=== PATIENT | female | born 1945 | race Caucasian/White ===

== ENCOUNTER → 2016-07-26 | Outpatient (CLI) | payer MEDICARE, OTHER ==
[~2016-07-26] MED LIST: ASPI1TAB PO; CALC600T21 PO; FISH5CAP PO; FOLI1TAB2 PO; HYDR12CA PO; ICAPCAP PO; INFL10VL IV; METH2.5TA PO; MULT1TAB9 PO; NIFE30TA66 PO; PRAV40TA2 PO; REST0.05 OU; TYLE1TAB5 PO; ZYRT10CA PO
--- NOTE | 2016-07-26 13:18 | REP ---
Clinical: Presurgical evaluation . Comparison: 10/05/2011 . Technique: PA and lateral. Findings: The mediastinum and cardiac silhouette are normal. The lung garza are clear and without acute consolidation, effusion, or pneumothorax. The skeletal structures are intact and normal. Impression: 1. No acute cardiopulmonary process. Signed by Dante Simpson MD 07/26/2016 01:10 P
[2016-07-26 14:15] LABS: COLLAGEN ADP 128 SECONDS (56-103)
[2016-07-26 14:20] LABS: ALBUMIN 3.5 GM/DL (3.2-5.2); ALBUMIN/GLOBULIN RATIO 1.13 (1.00-1.93); ALKALINE PHOSPHATASE 100 U/L (45-117); ALT/SGPT 25 U/L (12-78); ANION GAP 6 MEQ/L (8-16); AST/SGOT 20 U/L (15-37); BILIRUBIN,TOTAL 0.4 MG/DL (0.2-1.0); BLOOD UREA NITROGEN 14 MG/DL (7-18); CALCIUM LEVEL 9.5 MG/DL (8.8-10.2); CARBON DIOXIDE LEVEL 31 MEQ/L (21-32); CHLORIDE LEVEL 107 MEQ/L (98-107); CREATININE FOR GFR 0.63 MG/DL (0.55-1.02); GLOMERULAR FILTRATION RATE > 60.0 (>39); GLUCOSE, FASTING 87 MG/DL (83-110); POTASSIUM SERUM 4.1 MEQ/L (3.5-5.1); SODIUM LEVEL 144 MEQ/L (136-145); TOTAL PROTEIN 6.6 GM/DL (6.4-8.2)
--- NOTE | 2016-07-27 09:18 | ECGEPIP ---
Stationary ECG Study [facility] Test Date: 2016-07-26 Pat Name: RAFFI ARCINIEGA Department: Room: - Gender: F [employer]: KT : 1945 Requested By: GILDA Napier Order Number: [id number] Reading MD: Trell Dyer Measurements Intervals [place] Rate: 69 P: 32 PA: 179 QRS: 36 QRSD: 106 T: 28 QT: 412 QTc: 442 Interpretive Statements SINUS RHYTHM SEPTAL MYOCARDIAL INFARCTION, OF INDETERMINATE AGE Comparison tracing not on file Electronically Signed On 07-27-2016 9:18:11 EST by Trell Dyer
--- NOTE | 2016-08-04 18:31 | CR ---
DATE OF CONSULTATION: 08/04/2016 CONSULTATION FOR: Dr. Prudencio Tobar Thank you for asking me to see Ms. Ashely Low, a 70-year-old female, in consultation prior to her cataract extractions. As you know, Ms. Low is a 70-year-old female with a past history of inflammatory osteoarthritis, ulcerative colitis, hypertension who reports that she has been in her usual state of good health with no fevers or chills, chest pain, or palpitations. The patient has known hypertension. Denies chest pain, palpitations, syncope, or presyncope. She also has Raynaud's disorder, which is been asymptomatic since being on nifedipine for her hypertension. Patient has history of inflammatory osteoarthritis. She is on Remicade every 8 weeks as well as methotrexate. She reports arthritic symptoms are well controlled, and she follows with Dr. Andrea with labs every 8 weeks. The patient has gained weight over the holiday. She is frustrated by this and trying to get back on track The patient also has ulcerative colitis. This too was controlled by the Remicade. She rarely needs to take anti-diarrhea medications. REVIEW OF SYSTEMS: Otherwise negative. PAST MEDICAL HISTORY 1. Inflammatory osteoarthritis (OA). Follows with Dr. Andrea on autoimmune medications. 2. Osteoarthritic degenerative joint disease (OA DJD). 3. Ulcerative colitis. 4. Raynaud's disorder. 5. Hypertension. 6. Pilonidal cyst. 7. G2, P2/spontaneous vaginal delivery (). 8. Palpitations. 9. Fibrocystic breast disease status post negative biopsy. 10. Atypical chest pain. Normal stress echo 10/11/2016. 11. Left shoulder surgery September 2011. 12. Atypical squamous cells of undetermined significance (ASCUS) with normal Pap July 2016 and April 2015. 13. Hyperlipidemia. MEDICATIONS: - baby aspirin daily - calcium plus D twice a day - folic acid 1 mg daily - hydrochlorothiazide 4.5 mg daily - I-Caps daily - Imodium as needed - methotrexate 2.5 mg five tablets weekly - nifedipine ER 30 mg daily - pravastatin 40 mg daily - Premarin vaginal cream three times a week - Remicade every 8 weeks IV - Restasis as needed - saline nasal spray as needed - Zyrtec 10 mg daily FAMILY HISTORY: Positive for Alzheimer's, coronary artery disease (CAD), diabetes, strokes in her father. Positive for breast cancer, hypertension, heart valve disease, and diabetes in her mother, who in 80s. Her brother had diabetes and heart valve disease as well as testicular cancer. Another brother had CAD with stents in his 60s, hypertension, hyperlipidemia. A sister had atrial fibrillation, hypertension, skin cancer. SOCIAL HISTORY: Former smoker with a one to two-pack history total. Alcohol: Three glasses of wine a week. Drug allergies: Lidocaine has caused palpitations. PHYSICAL EXAMINATION: No acute distress. VITAL SIGNS: Weight 202 with a body mass index (BMI) of 33. Her oxygen saturation is 98% after exertion, blood pressure 140/72. Her heart rate is 80. HEENT: Pupils equally reactive to light. Extraocular movements are intact. Conjunctivae not injected. Sclerae anicteric. Head is normocephalic. Neck is supple. Tympanic membranes normal. Posterior pharynx without inflammation. No cervical lymphadenopathy, jugular venous distention (JVD), or thyromegaly. RESPIRATORY: Clear to auscultation. Resonant to percussion. She has a well-healed scar just above the gluteal fold from previous pilonidal cyst surgery. Breasts exam deferred. CARDIOVASCULAR: A barely audible systolic murmur. ABDOMEN: Soft, nontender. No hepatosplenomegaly. EXTREMITIES: No cyanosis, clubbing, or edema, but she does have arthritic changes, particularly in the distal interphalangeal (DIP) joints. NEUROLOGIC: Alert and oriented with cranial nerves II-XII intact. LABORATORY DATA: From [facility] ([facility]) 07/26/2016: Hemoglobin 12.5, abnormal platelet function studies but normal metabolic profile/liver panel. EKG is unchanged from previous EKG that does show sinus rhythm. Cannot rule out previous anterior septal myocardial infarction ([place]). Rate of 69, axis of 36 degrees. Chest x-ray: No acute cardiopulmonary process. Stress echo 2011 showed no inducible disease. IMPRESSION: Ms. Ashely Low, a very pleasant 70-year-old female with cardiovascular risk factors positive for hypertension, hyperlipidemia, family history, age, and inflammatory disease, has no signs or symptoms indicative of cardiovascular ischemia, and is felt to be at low risk for cardiovascular complications from the proposed surgical intervention, which can be further minimized by the following. RECOMMENDATIONS: 1. Abnormal platelet function studies. Hold aspirin and omega-3. 2. Hypertension. Take nifedipine as usual morning surgery. Hold hydrochlorothiazide. 3. Hyperlipidemia. Take pravastatin as usual evening prior to surgery. 4. Inflammatory polyarthropathy. Hold methotrexate, Remicade, folic acid day of surgery. 5. Obesity. Dietary advice discussed. 6. Raynaud's. Take nifedipine morning of surgery. 7. ASCUS. Recent Pap normal. Consider repeat 2-3 years. Thank you very much for this consultation. Please call with questions or concerns.
== END ==
LOC: M LAB 12:27
PROVIDERS: ATTEND Ophthalmology
DX: Z01.818 Encounter for other preprocedural examination (principal); H25.13 Age-related nuclear cataract, bilateral; I10 Essential (primary) hypertension

== ENCOUNTER → 2016-08-12 | Day surgery (SDC) | payer MEDICARE, OTHER ==
[~2016-08-12] VITALS: Ht 167.6 cm; Wt 91.6 kg
[~2016-08-12] MED LIST changes: +ACETYLCHOLINE OPHTH SOLN 1% 2ML As Ordered ONE; +ACETYLCHOLINE OPHTH SOLN 1% 2ML XX ONE; +BALANCED SALT IRRIGATION SOL 500ML GLASS BOTTLE (FOR OR EYE COMPOUND) IR ONE; +BALANCED SALT IRRIGATION SOLUTION 500ML BAG (FOR OR EYE MACHINE) As Ordered ONE; +CEFUROXIME 1MG/0.1ML INTRACAMERAL INJ As Ordered ONE; +CEFUROXIME 1MG/0.1ML INTRACAMERAL INJ ICAM ONE; +HEALON DUET (HEALON 10MG/ML 0.55ML & HEALON ENDOCOAT 30MG/ML 0.85ML) As Ordered ONE; +HEALON DUET (HEALON 10MG/ML 0.55ML & HEALON ENDOCOAT 30MG/ML 0.85ML) XX ONE; +LABETALOL HCL 100 MG/20 ML VIAL As Ordered ONE; +LIDOCAINE 1% SDV 5 ML VIAL As Ordered ONE; +LIDOCAINE 1% SDV 5 ML VIAL XX ONE; +LIDOCAINE 4% INJ 5 ML AMP As Ordered ONE; +LIDOCAINE 4% INJ 5 ML AMP XX ONE; +MIDAZOLAM INJ 2 MG/2 ML VIAL (J2250) As Ordered ONE; +OFLOXACIN 0.3 % (OCUFLOX) OPTH SOL 5ML OS ONE; +ONDANSETRON 4MG/2ML VIAL (J2405) As Ordered ONE; +PHENYLEPHRINE 2.5% OPHTH SOL 2ML OS ONE; +POVIDONE-IODINE 5% OPHTH PREP SOL 30ML As Ordered ONE; +PROPARACAINE 0.5% OPHTH SOL 15ML OS ONE; +TOBRADEX OPHTH OINT 3.5 GM As Ordered ONE; +TOBRADEX OPHTH OINT 3.5 GM XX ONE; +TROPICAMIDE 1% OPHTH SOLN 2 ML OS ONE; +fentaNYL 100 MCG/2 ML INJECTION (J3010) As Ordered ONE
[2016-08-12 11:15] VITALS: BP 146/65
--- NOTE | 2016-08-13 11:24 | RO ---
DATE OF PROCEDURE: 08/12/2016 PREOPERATIVE DIAGNOSIS: Visually significant nuclear sclerotic cataract left eye. POSTOPERATIVE DIAGNOSIS: Visually significant nuclear sclerotic cataract left eye. PROCEDURE: Cataract extraction with use of phacoemulsification and placement of intraocular lens ZCB00, 21.5 diopter, left eye. SURGEON: Prudencio Tobar DO [employer]: ANESTHESIA: Local with monitored anesthesia care (MAC). COMPLICATIONS: None. POSTOPERATIVE CONDITION: Stable. INDICATION FOR SURGERY: Blurred vision left eye affecting patient's activities of daily living. DESCRIPTION OF PROCEDURE: The patient was seen in the preoperative area and properly identified. The correct operative eye was identified and marked. Attention was turned to that eye. The patient received topical antibiotics in the preoperative area. The patient then received topical dilating drops consisting of tropicamide and phenylephrine. The patient was then transferred to the operating room. The correct side was reidentified. The patient received topical anesthetics and antibiotics on the surface of the eye. The eye was prepped and draped in a sterile fashion. The upper and lower eyelids were isolated with Tegaderm tape, and the lids were held open with an adjustable speculum. Using a sideport blade, a paracentesis incision was made. Intraocular preservative-free lidocaine was then injected into the anterior chamber. Viscoelastic was then injected into the anterior chamber through the paracentesis. Using a 2.65 mm sharp-tipped keratome, the anterior chamber was entered via a temporal clear corneal incision. A continuous curvilinear capsulorrhexis was created with the aid of a 26-gauge cystotome and Utrata forceps. Hydrodissection was performed with balanced salt solution (BSS) on a blunt cannula until the nucleus was freely mobile. The crystalline lens was phacoemulsified and aspirated. Additional cohesive viscoelastic was placed into the capsular bag to deepen it. A ZCB00, 21.5 diopter lens was placed into the capsular bag and confirmed by visualizing the continuous curvilinear capsulorrhexis. Additional irrigation and aspiration was used to remove cortical material and remaining viscoelastic. The clear corneal incision was hydrated with BSS on a blunt cannula. The lens was well positioned. The incisions were then tested for leaks and found to be negative. The eye was then palpated for appropriate pressure and adjusted accordingly with BSS. The eyelid speculum was then carefully removed. Tobradex ointment was placed in the eye. An eye patch and shield were then secured over the eye. The patient tolerated the procedure well and was discharged to the recovery unit in a stable condition. ANA
== END | disposition home or self-care (01) ==
LOC: M SDC 07:47
PROVIDERS: ATTEND Ophthalmology
DX: H25.12 Age-related nuclear cataract, left eye (principal); I10 Essential (primary) hypertension; E78.5 Hyperlipidemia, unspecified; K52.9 Noninfective gastroenteritis and colitis, unspecified; M06.9 Rheumatoid arthritis, unspecified; E66.9 Obesity, unspecified; Z88.8 Allergy status to other drugs, medicaments and biological substances; Z79.899 Other long term (current) drug therapy; Z79.82 Long term (current) use of aspirin; Z78.0 Asymptomatic menopausal state; Z98.51 Tubal ligation status; Z87.891 Personal history of nicotine dependence
CPT/HCPCS: 36415; 66984; 85576; J2250; J2405; J3010; V2632

== ENCOUNTER → 2016-09-02 | Day surgery (SDC) | payer MEDICARE, OTHER ==
[~2016-09-02] VITALS: Ht 167.6 cm; Wt 92.0 kg
[~2016-09-02] MED LIST changes: -BALANCED SALT IRRIGATION SOL 500ML GLASS BOTTLE (FOR OR EYE COMPOUND) IR ONE; -LABETALOL HCL 100 MG/20 ML VIAL As Ordered ONE; +LIDOCAINE 0.75%/EPINEPHRINE 0.025% IN BSS 1ML SYR INTRACAMERAL (OR ONLY) As Ordered ONE; -LIDOCAINE 1% SDV 5 ML VIAL XX ONE; +OFLOXACIN 0.3 % (OCUFLOX) OPTH SOL 5ML OD ONE; -OFLOXACIN 0.3 % (OCUFLOX) OPTH SOL 5ML OS ONE; -ONDANSETRON 4MG/2ML VIAL (J2405) As Ordered ONE; +PHENYLEPHRINE 2.5% OPHTH SOL 2ML OD ONE; -PHENYLEPHRINE 2.5% OPHTH SOL 2ML OS ONE; +PROPARACAINE 0.5% OPHTH SOL 15ML OD ONE; -PROPARACAINE 0.5% OPHTH SOL 15ML OS ONE; +TOBRAMYCIN INJ 80 MG/2 ML VIAL (J3260) As Ordered ONE; +TROPICAMIDE 1% OPHTH SOLN 2 ML OD ONE; -TROPICAMIDE 1% OPHTH SOLN 2 ML OS ONE
[2016-09-02] MEDS: D5W/0.2% SODIUM CHLORIDE 250 ML IV SCH ×2 (08:30→09:21)
[2016-09-02 10:00] VITALS: BP 187/78
--- NOTE | 2016-09-02 21:45 | RO ---
DATE OF PROCEDURE: 09/02/2016 PREOPERATIVE DIAGNOSIS: Visually significant nuclear sclerotic cataract right eye. POSTOPERATIVE DIAGNOSIS: Visually significant nuclear sclerotic cataract right eye. PROCEDURE: Cataract extraction with use of phacoemulsification and placement of intraocular lens ZCB00 22.0 diopters, right eye. SURGEON: Prudencio Tobar DO ALIGNMENT SPECIALIST: ANESTHESIA: Local with monitored anesthesia care (MAC). COMPLICATIONS: None. POSTOPERATIVE CONDITION: Stable. INDICATION FOR SURGERY: Blurred vision right eye affecting patient's activities of daily living. DESCRIPTION OF PROCEDURE: The patient was seen in the preoperative area and properly identified. The correct operative eye was identified and marked. Attention was turned to that eye. The patient received topical antibiotics in the preoperative area. The patient then received topical dilating drops consisting of tropicamide and phenylephrine. The patient was then transferred to the operating room. The correct side was reidentified. The patient received topical anesthetics and antibiotics on the surface of the eye. The eye was prepped and draped in a sterile fashion. The upper and lower eyelids were isolated with Tegaderm tape, and the lids were held open with an adjustable speculum. Using a sideport blade, a paracentesis incision was made. Intraocular preservative-free lidocaine was then injected into the anterior chamber. Viscoelastic was then injected into the anterior chamber through the paracentesis. Using a 2.65 mm sharp-tipped keratome, the anterior chamber was entered via a temporal clear corneal incision. A continuous curvilinear capsulorrhexis was created with the aid of a 26-gauge cystotome and Utrata forceps. Hydrodissection was performed with balanced salt solution (BSS) on a blunt cannula until the nucleus was freely mobile. The crystalline lens was phacoemulsified and aspirated. Additional cohesive viscoelastic was placed into the capsular bag to deepen it. A ZCB00 22.0 diopter lens was placed into the capsular bag and confirmed by visualizing the continuous curvilinear capsulorrhexis. Additional irrigation and aspiration was used to remove cortical material and remaining viscoelastic. The clear corneal incision was hydrated with BSS on a blunt cannula. The lens was well positioned. The incisions were then tested for leaks and found to be negative. The eye was then palpated for appropriate pressure and adjusted accordingly with BSS. Several drops of antibiotics and Iopidine were placed in the eye. The eyelid speculum was then carefully removed. Maxitrol ointment was placed in the eye. An eye patch and shield were then secured over the eye. The patient tolerated the procedure well and was discharged to the recovery unit in a stable condition. ANA
== END | disposition home or self-care (01) ==
LOC: M SDC 07:15
PROVIDERS: ATTEND Ophthalmology
DX: H25.11 Age-related nuclear cataract, right eye (principal); I10 Essential (primary) hypertension; E78.00 Pure hypercholesterolemia, unspecified; K52.9 Noninfective gastroenteritis and colitis, unspecified; M06.9 Rheumatoid arthritis, unspecified; Z88.0 Allergy status to penicillin; Z88.2 Allergy status to sulfonamides; Z88.8 Allergy status to other drugs, medicaments and biological substances; Z79.899 Other long term (current) drug therapy; Z79.82 Long term (current) use of aspirin; Z92.21 Personal history of antineoplastic chemotherapy; Z78.0 Asymptomatic menopausal state; Z98.51 Tubal ligation status; Z87.891 Personal history of nicotine dependence
CPT/HCPCS: 66984; J2250; J3010; V2632

== ENCOUNTER 2017-03-30 06:40 | Outpatient (CLI) | payer MEDICARE, OTHER ==
[~2017-03-30] VITALS: Ht 167.6 cm; Wt 92.5 kg
[~2017-03-30 06:40] MED LIST changes: -ACETYLCHOLINE OPHTH SOLN 1% 2ML As Ordered ONE; -ACETYLCHOLINE OPHTH SOLN 1% 2ML XX ONE; -BALANCED SALT IRRIGATION SOLUTION 500ML BAG (FOR OR EYE MACHINE) As Ordered ONE; -CALC600T21 PO; +CALC600T60 PO; -CEFUROXIME 1MG/0.1ML INTRACAMERAL INJ As Ordered ONE; -CEFUROXIME 1MG/0.1ML INTRACAMERAL INJ ICAM ONE; -FOLI1TAB2 PO; +FOLI1TAB4 PO; -HEALON DUET (HEALON 10MG/ML 0.55ML & HEALON ENDOCOAT 30MG/ML 0.85ML) As Ordered ONE; -HEALON DUET (HEALON 10MG/ML 0.55ML & HEALON ENDOCOAT 30MG/ML 0.85ML) XX ONE; -LIDOCAINE 0.75%/EPINEPHRINE 0.025% IN BSS 1ML SYR INTRACAMERAL (OR ONLY) As Ordered ONE; -LIDOCAINE 1% SDV 5 ML VIAL As Ordered ONE; -LIDOCAINE 4% INJ 5 ML AMP As Ordered ONE; -LIDOCAINE 4% INJ 5 ML AMP XX ONE; -MIDAZOLAM INJ 2 MG/2 ML VIAL (J2250) As Ordered ONE; -OFLOXACIN 0.3 % (OCUFLOX) OPTH SOL 5ML OD ONE; -PHENYLEPHRINE 2.5% OPHTH SOL 2ML OD ONE; -POVIDONE-IODINE 5% OPHTH PREP SOL 30ML As Ordered ONE; -PROPARACAINE 0.5% OPHTH SOL 15ML OD ONE; -TOBRADEX OPHTH OINT 3.5 GM As Ordered ONE; -TOBRADEX OPHTH OINT 3.5 GM XX ONE; -TOBRAMYCIN INJ 80 MG/2 ML VIAL (J3260) As Ordered ONE; -TROPICAMIDE 1% OPHTH SOLN 2 ML OD ONE; -fentaNYL 100 MCG/2 ML INJECTION (J3010) As Ordered ONE
[2017-03-30] MEDS ORDERED: NS 1,000 ML IV ONE (07:45)
[2017-03-30] MEDS ORDERED: LIDOCAINE 2% INJ 100 MG/5 ML SDV (FOR ANES.) As Ordered ONE (07:46)
[2017-03-30] MEDS ORDERED: PROPOFOL 200 MG/20 ML VIAL As Ordered ONE ×2 (07:46→08:06)
--- NOTE | 2017-03-30 08:11 | ROOR ---
Patient Name: Ashely Low Procedure Date: 03/30/2017 7:38 AM Date of : 1945 Age: 71 Room: [facility] Gender: Female Note Status: Finalized Procedure: Total Colonoscopy to Cecum + Biopsies Indications: High risk colon cancer surveillance: Ulcerative colitis, Last colonoscopy: 2012 Providers: Gus Tobar MD Referring MD: Melina VALENTINE MD Requesting Provider: Medicines: Monitored Anesthesia Care Complications: No immediate complications. Procedure: Pre-Anesthesia Assessment: - The heart rate, respiratory rate, oxygen saturations, blood pressure, adequacy of pulmonary ventilation, and response to care were monitored throughout the procedure. The Colonoscope was introduced through the anus and advanced to the cecum, identified by appendiceal orifice and ileocecal valve. The colonoscopy was performed without difficulty. The patient tolerated the procedure well. The quality of the bowel preparation was excellent. Findings: The perianal and digital rectal examinations were normal. Non-bleeding internal hemorrhoids were found during retroflexion. The hemorrhoids were small and Grade I (internal hemorrhoids that do not prolapse). Scattered small-mouthed diverticula were found in the recto-sigmoid colon, sigmoid colon and descending colon. The exam was otherwise without abnormality on direct and retroflexion views. Background biopsies were taken for histology with a cold forceps from the ascending colon, transverse colon, descending colon and rectosigmoid colon. These biopsy specimens were sent to Pathology. The exam was otherwise without abnormality. Impression: - Non-bleeding internal hemorrhoids. - Diverticulosis in the recto-sigmoid colon, in the sigmoid colon and in the descending colon. - The examination was otherwise normal on direct and retroflexion views. - The examination was otherwise normal. - Background biopsies were taken from the ascending colon, transverse colon, descending colon and rectosigmoid colon. - The exam was otherwise normal to the cecum. Recommendation: - The patient will be observed post-procedure, until all discharge criteria are met. - Discharge patient to home. - Continue present medications. - Await pathology results. - Telephone GI clinic for pathology results in 1 week. - Return to referring physician. - Repeat colonoscopy for symptoms only. - Continue present medications. - The findings and recommendations were discussed with the patient's family. Gus Tobar MD Gus Tobar MD 03/30/2017 8:10:51 AM This report has been signed electronically. Number of Addenda: 0 Note Initiated On: 03/30/2017 7:38 AM Estimated Blood Loss: Estimated blood loss: none.
[2017-03-30 08:35] VITALS: BP 182/97
== END 2017-03-30 08:46 | disposition home or self-care (01) ==
LOC: M OPP 06:40
PROVIDERS: ATTEND Internal Medicine Gastroenterology
DX: Z12.11 Encounter for screening for malignant neoplasm of colon (principal); K51.90 Ulcerative colitis, unspecified, without complications; K64.0 First degree hemorrhoids; K57.30 Diverticulosis of large intestine without perforation or abscess without bleeding; I10 Essential (primary) hypertension; E78.00 Pure hypercholesterolemia, unspecified; M19.90 Unspecified osteoarthritis, unspecified site; Z78.0 Asymptomatic menopausal state; Z79.899 Other long term (current) drug therapy; Z79.82 Long term (current) use of aspirin; Z88.8 Allergy status to other drugs, medicaments and biological substances

== ENCOUNTER → 2017-07-05 | Outpatient (CLI) | payer MEDICARE, OTHER ==
--- NOTE | 2017-07-09 08:48 | RADONC ---
RADIATION ONCOLOGY CONSULTATION NOTE DATE: 07/05/2017 CHART NUMBER: [id number]. DIAGNOSIS #1: Left breast cancer. STAGE: IIA, T2N0M0. DIAGNOSIS #2: Right breast cancer. STAGE: IA, T1N0M0. ECOG PERFORMANCE STATUS: Zero. CONSULTATION NOTE: Ms. Low is a very pleasant, 71-year-old white female with the diagnosis of a stage IIA, T2N0M0, moderately differentiated invasive ductal carcinoma of the left breast as well as a stage IA, [id number], moderately differentiated infiltrating ductal carcinoma of the right breast who is presenting to us today status post bilateral lumpectomies and sentinel lymph node biopsies for consideration of postoperative radiation therapy for conservative breast management. HISTORY OF PRESENT ILLNESS: The patient was in her usual state of health until routine mammogram done 05/04/2017 revealed a suspicious lesion in her right breast. Ultrasound confirmed a 1.3 cm mass in the 9 o'clock position. She underwent core biopsy and infiltrating ductal carcinoma was found. The tumor was estrogen receptor and progesterone receptor positive and HER2/janelle negative. An MRI was done on 05/13/2017 and confirmed the right breast mass but also revealed a left breast mass. Ultrasound revealed a 0.5 cm mass at the 2 o'clock position in the left breast. This was biopsied and revealed to be infiltrating ductal carcinoma with lobular features. This tumor was also estrogen receptor and progesterone receptor positive and HER2/janelle negative. On 06/15/2017, the patient underwent a left and right lumpectomies as well as sentinel lymph node biopsies. Pathology revealed on the left side a 2.5 cm moderately differentiated invasive ductal carcinoma with extensive lymph vascular invasion. The margins were initially positive, but subsequent re-excision of the margins revealed all negative margins. The tumor was estrogen receptor and progesterone receptor positive and HER2/janelle negative. The patient also underwent sentinel lymph node sampling with one lymph node negative for malignancy. In addition, the right breast underwent lumpectomy and pathology revealed a 1.2 cm moderately differentiated invasive ductal carcinoma. A right sentinel lymph node was sampled and was negative for malignancy as well. This tumor was also estrogen receptor and progesterone receptor positive and HER2/janelle negative. The patient has done well since surgery and is now presenting to us for discussion of postoperative radiation therapy as a therapeutic option. PAST MEDICAL HISTORY: The patient's past medical history is positive for heart palpitations. She also has a history of arthritis and hypertension. She has had rheumatoid arthritis for years and has been taking methotrexate and Remicade. She also had a tubal ligation in the past as well as rotator cuff surgery and cataract surgery. ALLERGIES: The patient is allergic to EPINEPHRINE. SOCIAL HISTORY: The patient quit smoking in 1966. She had smoked less than half a pack of cigarettes per day for 5 years. She drinks alcohol several times per week. FAMILY HISTORY: The patient's family history has a mother with breast cancer and a brother with testicular cancer. REVIEW OF SYSTEMS: The patient's review of systems is positive for colitis. Her review of systems is otherwise noncontributory. Denies nausea, vomiting, fevers, chills, night sweats, diplopia, headaches, anxiety or depression, anorexia, weight loss, visual disturbances, chest pain, urinary or bowel difficulties, bone pain, or neurological problems. PHYSICAL EXAMINATION: The patient is a well-developed, well-nourished, 71-year-old female, in no acute distress. HEENT exam is normocephalic, atraumatic. Extraocular movements are intact. There is no palpable cervical, supraclavicular, infraclavicular, axillary, or inguinal lymphadenopathy present. Lungs are clear to auscultation and percussion. Heart has a regular rate and rhythm. Abdomen is benign with no hepatosplenomegaly, masses, or tenderness. Breast examination reveals no masses or discharge bilaterally. Skeletal examination reveals no tenderness to pressure or percussion of the bony skeleton. Extremities reveal no clubbing, cyanosis, or edema. Neurologic exam is grossly intact, as is the remainder of the physical examination. ASSESSMENT: Clearly the patient is a candidate for external beam radiation therapy and I have so informed her. I have discussed with the patient in detail the potential benefits as well as possible acute and chronic sequelae of external beam radiation therapy. We have discussed logistics of treatment planning, simulation and subsequent fractionated daily radiation treatments. I have scheduled the patient for simulation of her bilateral breasts. The patient is scheduled see medical oncology to discuss systemic therapy on 07/12/2017. We are planning on initiating treatment planning following that appointment. Clearly should she be deemed a candidate for systemic therapy, systemic therapy would be delivered first and radiation would follow. We await the expert opinion of our excellent medical oncologists. Thank you once again for allowing us to participate in the care of this very pleasant woman. If I could be of any further assistance or provide you with any information, please feel free to contact me anytime. As always, warm regards. cc: Zulma Cloud MD,PhD MD Melina De La O MD
== END ==
LOC: M ONCR 08:59
PROVIDERS: ATTEND Radiology Radiation Oncology
DX: C50.911 Malignant neoplasm of unspecified site of right female breast (principal); C50.912 Malignant neoplasm of unspecified site of left female breast

== ENCOUNTER 2017-08-09 14:41 | Outpatient (RCR) | payer MEDICARE, OTHER | END 2017-08-17 | LOC: M ONCR 14:41 | DX: C50.812 Malignant neoplasm of overlapping sites of left female breast (principal); C50.811 Malignant neoplasm of overlapping sites of right female breast | CPT/HCPCS: 77334 ==

== ENCOUNTER → 2017-08-09 | Outpatient (CLI) | payer MEDICARE, OTHER | LOC: M RAD 10:31 | DX: C50.919 Malignant neoplasm of unspecified site of unspecified female breast (principal) ==

== ENCOUNTER 2017-08-18 09:50 | Outpatient (RCR) | payer MEDICARE, OTHER | END 2017-09-14 | LOC: M ONCR 09:50 | DX: C50.812 Malignant neoplasm of overlapping sites of left female breast (principal); C50.811 Malignant neoplasm of overlapping sites of right female breast | CPT/HCPCS: 77300 ==

== ENCOUNTER 2017-09-15 11:10 | Outpatient (RCR) | payer MEDICARE, OTHER | END 2017-10-15 | LOC: M ONCR 11:10 | DX: C50.811 Malignant neoplasm of overlapping sites of right female breast (principal); C50.812 Malignant neoplasm of overlapping sites of left female breast | CPT/HCPCS: 77300 ==

== ENCOUNTER → 2017-11-16 | Outpatient (CLI) | payer MEDICARE, OTHER | LOC: M ONCR 14:09 | DX: C50.812 Malignant neoplasm of overlapping sites of left female breast (principal); C50.811 Malignant neoplasm of overlapping sites of right female breast | CPT/HCPCS: G0463 ==

== ENCOUNTER → 2018-05-17 | Outpatient (CLI) | payer MEDICARE, OTHER | LOC: M ONCR 13:51 | DX: C50.911 Malignant neoplasm of unspecified site of right female breast (principal) | CPT/HCPCS: G0463 ==

== ENCOUNTER → 2018-11-08 | Outpatient (CLI) | payer MEDICARE, OTHER ==
[~2018-11-08] MED LIST changes: -ASPI1TAB PO; +ASPI81TA26 PO; +CHLO125TA PO; +EXEM25TA PO; +FOLI1TAB11 PO; -FOLI1TAB4 PO; +LETR2.5T2 PO; +METH2.5T48 PO; -METH2.5TA PO; +NIFE30TA50 PO; -NIFE30TA66 PO; +SILV40CR EXT; +TARTCAP PO
--- NOTE | 2018-11-14 13:15 | RADONC ---
RADIATION ONCOLOGY FOLLOWUP NOTE DATE: 11/08/2018 CHART #: [id number] DIAGNOSIS: Left breast cancer. STAGE: II A, T2N0M0. DIAGNOSIS: Right breast cancer. STAGE: I A, Q1wT9X1. ECOG PERFORMANCE STATUS: 0. FOLLOWUP NOTE: Ms. Low is a very pleasant 73-year-old white female with the diagnosis of a stage II A, T2N0M0, moderately differentiated invasive ductal carcinoma of the left breast as well as a stage I A, Q6kF3C0 1 cm, moderately differentiated infiltrating ductal carcinoma of the right breast who is presenting to us today for routine followup visit approximately 1 year post completion of external beam radiation therapy. REVIEW OF SYSTEMS: The patient presents today reporting that she is doing quite well with no complaints at this time related to her radiation therapy or disease. She has no significant breast or bone pain system occasional tenderness. Denies nausea, vomiting, fevers, chills, night sweats, diplopia, headaches, anxiety or depression, anorexia, weight loss, visual disturbances, chest pain, urinary or bowel difficulties, bone pain, or neurological problems. PHYSICAL EXAMINATION: The patient is a well-developed, well-nourished, 73-year-old female in no acute distress. HEENT exam is normocephalic, atraumatic. Extraocular movements are intact. There is no palpable cervical, supraclavicular, infraclavicular, axillary, or inguinal lymphadenopathy present. Lungs are clear to auscultation and percussion. Heart has a regular rate and rhythm. Abdomen is benign with no hepatosplenomegaly, masses, or tenderness. Breast examination reveals no masses or discharge bilaterally. Skeletal examination reveals no tenderness to pressure or percussion of the bony skeleton. Extremities reveal no clubbing, cyanosis, or edema. Neurologic exam is grossly intact, as is the remainder of the physical examination. ASSESSMENT: The patient is clinically KEKE at this time and is being discharged from our followup except on a p.r.n. basis. She will continue her close followup with her other physicians in the meantime. cc: MD Queenie Gates MD Julie LaPointe, MD
== END ==
LOC: M ONCR 13:57
PROVIDERS: ATTEND Radiology Radiation Oncology
DX: Z85.3 Personal history of malignant neoplasm of breast (principal); Z92.3 Personal history of irradiation

== ENCOUNTER → 2019-03-27 | Outpatient (REF) | payer MEDICARE, OTHER ==
[~2019-03-27] MED LIST changes: +ALLE10TA62 PO; +CELE1CAP4 PO; +ICAPCAP2 PO; +KP F1200 PO
[2019-03-28 12:56] LABS: PERCENT SATURATION 11.4 % (13.2-45.0); URIC ACID 6.6 MG/DL (2.6-6.0)
== END ==
LOC: M LAB REF 12:29
PROVIDERS: ATTEND Internal Medicine
DX: M25.50 Pain in unspecified joint (principal)

== ENCOUNTER 2019-06-04 08:10 | Day surgery (SDC) | payer MEDICARE, OTHER ==
[~2019-06-04] VITALS: Ht 165.1 cm; Wt 88.0 kg
[~2019-06-04 08:10] MED LIST changes: +ACET25TA12 PO; +DICL1GEL3 TOP; +FERR325T81 PO; +NS 1,000 ML IV ONE; +OMEP40CA97 PO; +PROL60SO SC
[2019-06-04] MEDS ORDERED: PROPOFOL 200 MG/20 ML VIAL As Ordered ONE ×3 (09:16→09:40)
[2019-06-04] MEDS ORDERED: LIDOCAINE 2% INJ 100 MG/5 ML SDV (FOR ANES.) As Ordered ONE (09:17)
--- NOTE | 2019-06-04 09:30 | ROOR ---
Patient Name: Ashely Low Procedure Date: 06/04/2019 9:14 AM Date of : 1945 Age: 73 Room: [facility] Gender: Female Note Status: Finalized Procedure: Upper Endoscopy + Biopsies Indications: Iron deficiency anemia Providers: Gus Tobar MD Referring MD: Melina VALENTINE MD Requesting Provider: Medicines: Monitored Anesthesia Care Complications: No immediate complications. Procedure: Pre-Anesthesia Assessment: - The heart rate, respiratory rate, oxygen saturations, blood pressure, adequacy of pulmonary ventilation, and response to care were monitored throughout the procedure. The Endoscope was introduced through the mouth, and advanced to the second part of duodenum. The upper GI endoscopy was accomplished without difficulty. The patient tolerated the procedure well. Findings: The Z-line was regular and was found 40 cm from the incisors. Multiple biopsies were obtained with cold forceps for evaluation to rule out Smith's Esophagus randomly at the gastroesophageal junction. A small hiatal hernia was present. Biopsies were taken with a cold forceps in the gastric antrum for Helicobacter pylori testing. The exam of the duodenum was otherwise normal. Multiple small sessile polyps with no stigmata of recent bleeding were found on the greater curvature of the stomach. Impression: - Z-line regular, 40 cm from the incisors. - Small hiatal hernia. - Multiple gastric polyps. - Multiple biopsies were obtained at the gastroesophageal junction. - Biopsies were taken with a cold forceps for Helicobacter pylori testing. - The examination was otherwise normal. Recommendation: - Patient has a contact number available for emergencies. The signs and symptoms of potential delayed complications were discussed with the patient. Return to normal activities tomorrow. Written discharge instructions were provided to the patient. - High fiber diet. - Discharge patient to home. - Continue present medications. - Await pathology results. - Telephone GI clinic for pathology results in 1 week. - Return to referring physician. - The findings and recommendations were discussed with the patient's family. Gus Tobar MD Gus Tobar MD 06/04/2019 9:29:35 AM Electronically signed by Gus Tobar MD Number of Addenda: 0 Note Initiated On: 06/04/2019 9:14 AM Estimated Blood Loss: Estimated blood loss: none.
--- NOTE | 2019-06-04 09:49 | ROOR ---
Patient Name: Ashely Low Procedure Date: 06/04/2019 9:14 AM Date of : 1945 Age: 73 Room: [facility] Gender: Female Note Status: Finalized Procedure: Total Colonoscopy to cecum + Bx. Indications: High risk colon cancer surveillance: Ulcerative colitis Providers: Gus Tobar MD Referring MD: Melina VALENTINE MD Requesting Provider: Medicines: Monitored Anesthesia Care Complications: No immediate complications. Procedure: Pre-Anesthesia Assessment: - The heart rate, respiratory rate, oxygen saturations, blood pressure, adequacy of pulmonary ventilation, and response to care were monitored throughout the procedure. The Colonoscope was introduced through the anus and advanced to the cecum, identified by appendiceal orifice and ileocecal valve. The colonoscopy was performed without difficulty. The patient tolerated the procedure well. The quality of the bowel preparation was excellent. Findings: The perianal and digital rectal examinations were normal. Non-bleeding internal hemorrhoids were found during retroflexion. The hemorrhoids were small and Grade I (internal hemorrhoids that do not prolapse). Multiple small and large-mouthed diverticula were found in the recto-sigmoid colon, sigmoid colon and descending colon. Background biopsies were taken for histology with a cold forceps from the ascending colon, transverse colon, descending colon and rectosigmoid colon. These biopsy specimens were sent to Pathology. The exam was otherwise without abnormality on direct and retroflexion views. Impression: - Non-bleeding internal hemorrhoids. - Diverticulosis in the recto-sigmoid colon, in the sigmoid colon and in the descending colon. - The examination was otherwise normal on direct and retroflexion views. - Background biopsies were taken from the ascending colon, transverse colon, descending colon and rectosigmoid colon. - The exam was otherwise normal to the cecum. Recommendation: - Patient has a contact number available for emergencies. The signs and symptoms of potential delayed complications were discussed with the patient. Return to normal activities tomorrow. Written discharge instructions were provided to the patient. - High fiber diet. - Discharge patient to home. - Continue present medications. - Await pathology results. - Telephone GI clinic for pathology results in 1 week. - Repeat colonoscopy for symptoms only. - Return to referring physician. - The findings and recommendations were discussed with the patient's family. Gus Tobar MD Gus Tobar MD 06/04/2019 9:48:43 AM Electronically signed by Gus Tobar MD Number of Addenda: 0 Note Initiated On: 06/04/2019 9:14 AM Estimated Blood Loss: Estimated blood loss: none.
[2019-06-04 10:10] VITALS: BP 139/64
== END 2019-06-04 10:28 | disposition home or self-care (01) ==
LOC: M OPP 08:10
PROVIDERS: ATTEND Internal Medicine Gastroenterology
DX: K64.0 First degree hemorrhoids (principal); K57.30 Diverticulosis of large intestine without perforation or abscess without bleeding; K51.90 Ulcerative colitis, unspecified, without complications; K31.7 Polyp of stomach and duodenum; K44.9 Diaphragmatic hernia without obstruction or gangrene; D50.9 Iron deficiency anemia, unspecified; Z09 Encounter for follow-up examination after completed treatment for conditions other than malignant neoplasm; Z79.82 Long term (current) use of aspirin; Z79.899 Other long term (current) drug therapy; Z88.4 Allergy status to anesthetic agent

== ENCOUNTER → 2019-06-06 | Outpatient (REF) | payer MEDICARE, OTHER ==
[~2019-06-06] MED LIST changes: -NS 1,000 ML IV ONE
[2019-06-06 17:05] LABS: PERCENT SATURATION 10.9 % (13.2-45.0)
== END ==
LOC: M LAB REF 16:24
PROVIDERS: ATTEND Internal Medicine
DX: D50.9 Iron deficiency anemia, unspecified (principal)

== ENCOUNTER → 2019-06-08 | Outpatient (REF) | payer MEDICARE, OTHER | LOC: M LAB REF 16:18 | PROVIDERS: ATTEND Internal Medicine | DX: D50.9 Iron deficiency anemia, unspecified (principal) ==

== ENCOUNTER → 2019-08-01 | Outpatient (CLI) | payer MEDICARE, OTHER ==
[~2019-08-01] MED LIST changes: +GASTROGRAFIN SOLUTION 30ML (Q9963) As Ordered ONE; +ISOVUE-370 76% 100ML VIAL (Q9967) As Ordered ONE
--- NOTE | 2019-08-01 19:14 | REP ---
CT chest with IV contrast: History: Weight loss and sweats. Evaluate for lymphadenopathy. History of left breast cancer. New anemia. Comparison is made with CT treatment planning images dated August 09, 2017. CT contrast dose: 100 ml of intravenous Isovue [address] findings: Preliminary digital service worker helper radiograph is unremarkable. There is no evidence of pleural or pericardial effusion. No mediastinal mass is seen. No hilar adenopathy is seen. There are two very small normal-sized lymph nodes in the aorticopulmonary window region of the mediastinum. There is no evidence of pulmonary edema. Vascular calcification is seen in the aorta. There are postoperative changes with clips in the right breast. Lung window settings show no evidence of infiltrate. No pulmonary nodule or mass lesion is observed. No bony lesion is seen. Impression: No active disease. Electronically Signed by Tommy Henriquez MD 08/02/2019 09:32 A
--- NOTE | 2019-08-01 19:15 | REP ---
CT abdomen and pelvis with IV and oral contrast: History: Weight loss and sweats. Evaluate for lymphadenopathy. History of breast carcinoma. CT contrast dose: 100 ml of intravenous Isovue [address] findings: No focal hepatic or splenic lesion is seen. There are accessory splenules noted. These are unchanged from treatment planning CT study imaging from August 09, 2017. There is no evidence of upper abdominal lymphadenopathy. No abnormalities noted in the pancreas or gallbladder. The kidneys enhance symmetrically. There is an intrarenal calculus in the upper pole right kidney which measures 5 mm in greatest diameter. No hydronephrosis is seen. No renal mass or ureteral calculus is observed. There are dystrophic uterine calcifications consistent with small fibroids. No bladder calculus or mass is seen. Small and large intestinal bowel loops are unremarkable. No pelvic mass or adenopathy is seen. Scattered normal size mesenteric lymph nodes are present. No lymphadenopathy is seen. No bony destructive lesion is appreciated. Impression: Intrarenal calculus upper pole left kidney. Vascular calcification. No acute abdominal or pelvic abnormality. Electronically Signed by Tommy Henriquez MD 08/02/2019 09:32 A
== END ==
LOC: M RAD 16:28
PROVIDERS: ATTEND Internal Medicine Medical Oncology
DX: N20.0 Calculus of kidney (principal); R63.4 Abnormal weight loss; C50.912 Malignant neoplasm of unspecified site of left female breast
CPT/HCPCS: 71260; 74177; Q9963; Q9967

== ENCOUNTER → 2020-07-04 | Outpatient (CLI) | payer SELFPAY ==
[~2020-07-04] MED LIST changes: +AMLO25TA PO; -GASTROGRAFIN SOLUTION 30ML (Q9963) As Ordered ONE; +HUMI40KI2 SC; -ISOVUE-370 76% 100ML VIAL (Q9967) As Ordered ONE; +LOSA100T50 PO; +PROP60TA14 PO; +SULF500T41 PO
== END ==
LOC: M LABSMTC 13:37
PROVIDERS: ATTEND Pediatrics
DX: Z20.828 Contact with and (suspected) exposure to other viral communicable diseases (principal)

== ENCOUNTER → 2020-11-17 | Outpatient (CLI) | payer MEDICARE, OTHER ==
[~2020-11-17] MED LIST changes: +COVI100V IM
--- NOTE | 2020-11-17 14:38 | REP ---
INDICATION: SHOULDER PAIN. COMPARISON: 03/02/2011 TECHNIQUE: Three views of the right shoulder were performed. FINDINGS: The acromioclavicular and glenohumeral relationships are within normal limits. There is no acute fracture or destructive osseous lesion. IMPRESSION: No acute disease or significant change compared to the prior exam. <Electronically signed by Jak Wei > 11/17/20 [id number]
== END ==
LOC: M RAD 12:43
PROVIDERS: ATTEND Internal Medicine Medical Oncology
DX: M25.511 Pain in right shoulder (principal)

== ENCOUNTER → 2021-02-12 | Outpatient (REF) | payer MEDICARE, OTHER ==
[~2021-02-12] MED LIST changes: +OMEP40CA4 PO; -OMEP40CA97 PO
== END ==
LOC: M LAB REF 10:41
PROVIDERS: ATTEND Internal Medicine
DX: R19.7 Diarrhea, unspecified (principal)

== ENCOUNTER → 2021-03-27 | Outpatient (CLI) | payer MEDICARE, OTHER ==
--- NOTE | 2021-03-27 14:49 | REP ---
INDICATION: COUGH. COMPARISON: July 26, 2014. TECHNIQUE: Two views.. FINDINGS: The lungs are symmetrically aerated and free of infiltrate. Pleural angles are sharp. Heart size is mildly enlarged, cardiothoracic ratio is 50.3%. Pulmonary vasculature is not increased. The thoracic aorta is calcific and tortuous. No bony abnormality is seen. IMPRESSION: Mild cardiomegaly. Otherwise no acute disease. <Electronically signed by Jose Eduardo Henriquez > 03/27/21 [id number]
== END ==
LOC: M RAD 13:59
PROVIDERS: ATTEND Internal Medicine
DX: I51.7 Cardiomegaly (principal); R05 Cough

== ENCOUNTER → 2021-09-02 | Outpatient (REF) | payer MEDICARE, OTHER ==
[~2021-09-02] MED LIST changes: +ALIG4CAP PO; +HYDR-3490 PO; +LOSA100T45 PO; -LOSA100T50 PO; +OXYB-54 PO; +PRESCAP PO
== END ==
LOC: M LAB REF 12:07
PROVIDERS: ATTEND Internal Medicine
DX: M06.9 Rheumatoid arthritis, unspecified (principal); Z79.899 Other long term (current) drug therapy

== ENCOUNTER → 2021-12-25 | Outpatient (CLI) | payer MEDICARE, OTHER ==
[~2021-12-25] MED LIST changes: +PRAV20TA2 PO
== END ==
LOC: M WHC 08:48
PROVIDERS: ATTEND Internal Medicine Medical Oncology
DX: M85.852 Other specified disorders of bone density and structure, left thigh (principal)

== ENCOUNTER → 2022-04-12 | Outpatient (REF) | payer MEDICARE, OTHER | LOC: M LAB REF 11:57 | PROVIDERS: ATTEND Internal Medicine | DX: Z79.899 Other long term (current) drug therapy (principal) ==

== ENCOUNTER → 2022-07-26 | Outpatient (REF) | payer MEDICARE, OTHER | LOC: M LAB REF 11:58 | PROVIDERS: ATTEND Internal Medicine | DX: M06.9 Rheumatoid arthritis, unspecified (principal) ==

== ENCOUNTER → 2023-01-14 | Outpatient (REF) | payer MEDICARE, OTHER ==
[~2023-01-14] MED LIST changes: -LOSA100T45 PO; +LOSA100T46 PO; +NIFE-3 PO; -NIFE30TA50 PO; +TROS60CA2
== END ==
LOC: M LAB REF 17:48
PROVIDERS: ATTEND Urology
DX: N39.41 Urge incontinence (principal)

== ENCOUNTER → 2023-08-15 | Outpatient (REF) | payer MEDICARE, OTHER ==
[~2023-08-15] MED LIST changes: +AMLO1TAB24 PO; +DICL100G10 TOP; -DICL1GEL3 TOP; +ROSU10TA6 PO
[2023-08-16 16:24] LABS: PERCENT SATURATION 28.9 % (13.2-45.0)
[2023-08-16 16:27] LABS: FERRITIN 112.1 NG/ML (7.3-270.7)
== END ==
LOC: M LAB REF 13:48
PROVIDERS: ATTEND Internal Medicine
DX: N18.31 Chronic kidney disease, stage 3a (principal); D64.9 Anemia, unspecified

== ENCOUNTER → 2023-11-21 | Outpatient (CLI) | payer MEDICARE, OTHER ==
[~2023-11-21] MED LIST changes: -ROSU10TA6 PO; +ROSU10TA61 PO; +VIBE75TA PO
== END ==
LOC: M RAD 12:04
PROVIDERS: ATTEND Internal Medicine Medical Oncology
DX: C50.919 Malignant neoplasm of unspecified site of unspecified female breast (principal)

== ENCOUNTER → 2023-11-30 | Outpatient (REF) | payer MEDICARE, OTHER | LOC: M LAB REF 11:53 | PROVIDERS: ATTEND Internal Medicine | DX: N18.31 Chronic kidney disease, stage 3a (principal) ==

== ENCOUNTER → 2023-12-27 | Outpatient (CLI) | payer MEDICARE, OTHER | LOC: M WHC 10:46 | PROVIDERS: ATTEND Internal Medicine Medical Oncology | DX: M85.852 Other specified disorders of bone density and structure, left thigh (principal); Z85.3 Personal history of malignant neoplasm of breast ==

== ENCOUNTER → 2024-09-06 | Outpatient (CLI) | payer MEDICARE, OTHER ==
[~2024-09-06] MED LIST changes: -ALIG4CAP PO; +ALIG4CAP3 PO; +DENO60SY2 SC; +MAGN71.5; +OLME40TA; -PROL60SO SC
== END ==
LOC: M WUC 11:31
PROVIDERS: ATTEND Nurse Practitioner Family
DX: M25.511 Pain in right shoulder (principal); W00.0XXA Fall on same level due to ice and snow, initial encounter

== ENCOUNTER → 2024-11-20 | Outpatient (CLI) | payer MEDICARE, OTHER | LOC: M RAD 16:01 | PROVIDERS: ATTEND Physician Assistant | DX: R06.02 Shortness of breath (principal); R05.3 Chronic cough; Z92.3 Personal history of irradiation; J47.9 Bronchiectasis, uncomplicated; I70.0 Atherosclerosis of aorta; I25.10 Atherosclerotic heart disease of native coronary artery without angina pectoris; I51.7 Cardiomegaly; N20.0 Calculus of kidney; M85.89 Other specified disorders of bone density and structure, multiple sites ==

== ENCOUNTER → 2025-05-30 | Outpatient (CLI) | payer MEDICARE, OTHER ==
[~2025-05-30] MED LIST changes: +FURO20TA2; +HYDR12.510 PO; -HYDR12CA PO; +OXYB10TA23; -PRAV20TA2 PO; +PRAV20TA78 PO; -PRAV40TA2 PO; +PRAV40TA85 PO; +PROP60CA; -ROSU10TA61 PO; +ROSU10TA90 PO; +SPIR-10
== END ==
LOC: M RAD 16:39
PROVIDERS: ATTEND Internal Medicine
DX: M51.360 Other intervertebral disc degeneration, lumbar region with discogenic back pain only (principal)

== ENCOUNTER → 2025-07-17 | Outpatient (REF) | payer MEDICARE, OTHER | LOC: M LAB REF 12:18 | PROVIDERS: ATTEND Internal Medicine | DX: E21.3 Hyperparathyroidism, unspecified (principal) ==